=== PATIENT | male | born 1965 | race African-American/Black ===

== ENCOUNTER 2017-10-10 09:40 | Outpatient (CLI) | payer OTHER ==
[~2017-10-10 09:40] MED LIST: ISOVUE-370 76%-LOCM 1 ML ONE
[2017-10-10] MEDS ORDERED: Gadobenate Dimeglumine 529 MG/1 ML (20ML VIAL) ONE (09:44)
--- NOTE | 2017-10-10 11:46 | CT ---
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 Comparison: CT angiogram of brain 04-10-17, and noncontrast CT of 07-12-17. Technique: Standard noncontrast brain CT performed. IV contrast injection of 80 ml of Isovue 370. Arterial bolus chasing technique scan performed from mid C4 level through vertex of head. Coronal and sagittal MIP reconstructions. 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 The noncontrast portion of the today's CT is unchang ed compared to 07-12-17. There is associated mild ex vacuo dilatation of the frontal horn of the left l ateral ventricle, and possible communication between the porencephalic cavity and the frontal horn. T here is no obstructive hydrocephalus, mass effect, midline shift, acute intracranial hemorrhage or ex traaxial fluid collection. The calvarium is intact. Visualized portions of the paranasal sinuses and bilateral tympanomastoid cavities, are clear. The arteriogram portion of the current study demonstrates no enlarged feeding artery or large drainin g vein (no evidence of AVM). There is no evidence of intracranial aneurysm. There is no evidence of o cclusion or high grade stenosis of the anterior or posterior circulation. There is lack of blood vess els in the region of encephalomalacia and porencephaly, but the distribution of blood vessel branches is normal elsewhere. No evidence of dural venous sinus thrombosis, but the left transverse sinus radha ears to be hypoplastic or absent. IMPRESSION: 1. 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 2. No evidence of arteriovenous malformation or aneurysm. POS: [facility]
--- NOTE | 2017-10-10 13:34 | MRI ---
BRAIN MRI WITH AND WITHOUT CONTRAST: COMPARISON: Brain MRI from 04/10/[address] head from 07/12/2017. FINDINGS: Redemonstration of prominent region of cavitary encephalomalacia at the left frontal lobe with surrou nding hemosiderin deposition. There is a slight area of ex vacuo dilatation of the left frontal horn . Midline structures are maintained. No acute territorial infarction. No pathologic intraaxial enh ancement. There are curvilinear areas of hyperintensity about the periphery of the irregular region of cavitary encephalomalacia, which demonstrate intrinsic T1 signal on pre-contrast imaging and may r elate to areas of cortical laminar necrosis. IMPRESSION: Re-demonstration of prominent sized region of cavitary encephalomalacia in the left frontal lobe. No interval acute intracranial abnormality is identified. POS: [facility]
== END 2017-10-10 09:41 | disposition home or self-care (01) ==
LOC: CT 09:40
PROVIDERS: ATTEND Neurological Surgery
DX: I60.9 Nontraumatic subarachnoid hemorrhage, unspecified (principal); G93.89 Other specified disorders of brain
CPT/HCPCS: 70496; 70553; A9579

== ENCOUNTER 2018-06-20 08:55 | Outpatient (CLI) | payer OTHER ==
--- NOTE | 2018-06-20 11:42 | CT ---
CT ABDOMEN WITH AND WITHOUT IV CONTRAST: Date: 06/20/18 HISTORY: Elevated liver function tests. FINDINGS: There are mild dependent changes in the left lung base. The liver, spleen, pancreas, adrenal glands, and left kidney are normal. There are small low density lesions in the right kidney, likely cysts. No calcified gallstones are seen. No free air, free fluid, or lymphadenopathy noted in the abdomen. The re is no evidence of aneurysmal dilatation of the abdominal aorta. There are mild degenerative change s in the spine. IMPRESSION: No significant abnormalities are seen. POS: [facility]
[2018-06-20] MEDS ORDERED: Iopamidol 370 76% 100 ML VIAL ONE (12:48)
== END 2018-06-20 08:56 | disposition home or self-care (01) ==
LOC: CT 08:55
PROVIDERS: ATTEND Nurse Practitioner Family
DX: R79.89 Other specified abnormal findings of blood chemistry (principal)
CPT/HCPCS: 74170

== ENCOUNTER 2018-09-29 12:34 | Emergency (ER) | payer OTHER ==
[2018-09-29 13:33] LABS: #Basophils 0.1 thou/uL (0.0-0.2); #Lymphocytes 1.8 thou/uL (1.20-3.40); #Monocytes 0.7 thou/uL (0.11-0.59); #Neutrophils 6.4 thou/uL (1.40-6.50); %Basophils 0.8 % (0.0-1.0); %Eosinophils 0.2 % (0.0-10.0); %Lymphocytes 19.9 % (21.0-51.0); %Monocytes 7.3 % (0.0-10.0); %Neutrophils 71.7 % (42.0-75.0); Hemoglobin 12.9 g/dL (14.0-18.0); Mean Corpuscular HGB CONC 33.6 g/dL (32.0-36.0); Mean Corpuscular Hemoglobin 30.9 pg (27.0-31.0); Mean Platelet Volume 7.2 fL (7.4-10.4); Platelet Count 182 thou/uL (130-400); RBC Distribution Width 12.8 % (11.5-14.5); Red Blood Cell (RBC) Count 4.17 mill/uL (4.70-6.10); White Blood Cell (WBC) Count 8.9 thou/uL (4.8-10.8)
[2018-09-29] MEDS ORDERED: levETIRAcetam In NaCl (Iso-Os) 1,000 MG in Premix Bag 1 BAG IVPB ONE (13:45)
[2018-09-29 13:55] LABS: Anion Gap 20 mmol/L (10-20); BUN (Urea Nitrogen) 13 mg/dL (8.4-25.7); Bilirubin, Total 0.7 mg/dL (0.2-1.2); Calc. Creatinine Clearance 0 mL/min (70-130); Calcium 9.9 mg/dL (7.8-10.44); Carbon Dioxide 18 mmol/L (22-29); Chloride 103 mmol/L (98-107); Estimated GFR-MDRD Greater than 90; Glucose 73 mg/dL (70-105); Potassium 4.2 mmol/L (3.5-5.1); Sodium 137 mmol/L (136-145)
[2018-09-29 13:56] LABS: ALT (SGPT) 20 U/L (8-55); AST (SGOT) 36 U/L (5-34); Albumin 4.4 g/dL (3.5-5.0); Alkaline Phosphatase 43 U/L (40-150); Globulin 3.3 g/dL (2.4-3.5); Protein, Total 7.7 g/dL (6.0-8.3)
--- NOTE | 2018-09-29 14:05 | CT ---
BRAIN CT WITHOUT IV CONTRAST: HISTORY: A 53-year-old male with a history of altered mental status, focal seizure. COMPARISON: 07/12/2017. FINDINGS: There is again noted to be a large area of intense low-attenuation change in the left frontal lobe, e vidence for cavitary-type encephalomalacia and possible porencephaly with some surrounding less dense encephalomalacia changes. The overall size of the area of encephalomalacia does appear to be more p rominent than on the 07/22/2017 study. No focal mass or midline shift. No intra or extraaxial hemorr ember. IMPRESSION: Large left frontal area of cavitary encephalomalacia with the size of the encephalomalacic region radha earing to be somewhat larger than on 07/12/2017 with some slightly worsening in some dilatation of the adjacent left frontal horn secondary to the encephalomalacia. No mass, acute hemorrhage, or other si gnificant acute process. POS: [facility]
[2018-09-29 14:19] LABS: Bilirubin Negative (Negative); Blood, Urine Small (Negative); Clarity CLEAR (Clear); Glucose, Urine (Dipstick) Negative (Negative); Leukocyte Negative (Negative); Nitrite Negative (Negative); Protein, Urine (Dipstick) Negative (Neg-Trace); Specific Gravity, Urine 1.016 (1.002-1.036); Urobilinogen 0.2 mg/dL (0.2-1.0); pH, Urine 5.5 (5.0-9.0)
[2018-09-29 14:21] LABS: Bacteria/HPF None Seen HPF (None Seen); Hyaline Casts/LPF 0-3 HYALINE CAST LPF (0-3 Hyaline); RBC/HPF 0-3 HPF (0-3); Squamous Epithelial None Seen HPF (0-3); WBC/HPF None Seen HPF (0-3)
== END 2018-09-29 15:40 | disposition home or self-care (01) ==
LOC: ERS 12:34
DX: R56.9 Unspecified convulsions (principal); I10 Essential (primary) hypertension; E78.5 Hyperlipidemia, unspecified; F17.220 Nicotine dependence, chewing tobacco, uncomplicated; Z79.899 Other long term (current) drug therapy
CPT/HCPCS: 36415; 70450; 80053; 80177; 81003; 81015; 85025; 93005; 96365; J1953

== ENCOUNTER 2019-10-09 12:14 | Emergency (ER) | payer OTHER ==
--- NOTE | 2019-10-09 13:35 | CT ---
CT CERVICAL SPINE WITHOUT CONTRAST: HISTORY: Fall. Injury. Neck pain. FINDINGS: There is loss of cervical lordosis with straightening of the cervical spine. Multilevel degenerative changes are present. No acute fracture, subluxation or facet malalignment is identified. POS: [facility]
--- NOTE | 2019-10-09 13:35 | CT ---
CT head noncontrast HISTORY: Seizure. COMPARISON: 09/29/2018. FINDINGS: There is no evidence of acute intracranial hemorrhage or infarct. The large cavitary area o f encephalomalacia at the left frontal lobe is stable. No new dominant mass or suspicious calcifications. Visualized paranasal sinuses remain well-aerated. IMPRESSION: Chronic-type findings are stable. No acute intracranial abnormalities are demonstrated.
[2019-10-09] MEDS ORDERED: levETIRAcetam 500 MG/100 ML PREMIX BAG ONE (14:41)
== END 2019-10-09 15:36 | disposition home or self-care (01) ==
LOC: ERS 12:14
DX: R56.9 Unspecified convulsions (principal); I10 Essential (primary) hypertension; E78.5 Hyperlipidemia, unspecified; F17.220 Nicotine dependence, chewing tobacco, uncomplicated; Z79.899 Other long term (current) drug therapy
CPT/HCPCS: 36415; 70450; 72125; 80177; 96365; J1953

== ENCOUNTER 2021-09-26 11:05 | Outpatient (CLI) | payer OTHER | END 2021-09-26 11:06 | disposition home or self-care (01) | LOC: RAD-FRANK 11:05 | PROVIDERS: ATTEND Nurse Practitioner Family | DX: M25.511 Pain in right shoulder (principal); M19.011 Primary osteoarthritis, right shoulder ==

== ENCOUNTER 2022-12-12 09:16 | Outpatient (CLI) | payer OTHER | END 2022-12-12 09:17 | disposition home or self-care (01) | LOC: RAD-FRANK 09:16 | PROVIDERS: ATTEND Nurse Practitioner Family | DX: M25.511 Pain in right shoulder (principal) ==